=== PATIENT | female | born 1985 | race Two or more races ===

== ENCOUNTER 2024-05-26 09:54 | Emergency (ER) | payer MEDICAID, SELFPAY ==
[2024-05-26 10:38] VITALS: BP 127/83; PULSE 70; RESP 16; TEMP 36.6; O2SAT 99; BMI 34.9
--- NOTE | 2024-05-26 10:38 | XR_ITS ---
Examination: Complete OB ultrasound, less than 14 weeks, transabdominal Date and time of exam: May 26, 2024 1158 hours INDICATIONS: Vaginal bleeding and pelvic cramping beginning this morning, positive test May 02, 2024 Technique: Obstetrical ultrasound images less than 14 weeks performed via transabdominal imaging Findings: Uterus 10.6 x 6.7 x 7.9 cm Empty intrauterine gestational sac in the lower uterine segment No pole No cardiac activity Right ovary 3.8 x 3.1 cm arterial flow 24 mm cyst Left ovary 3.4 x 2.2 cm arterial flow IMPRESSION: Findings most consistent with spontaneous in progress, suggest continued short-term follow-up pelvic sonography
--- NOTE | 2024-05-26 10:38 | PD.EDRME ---
Rapid Medical Screening Exam RME Arrival date/time: 05/26/24 09:54 38-year-old female approximately 9 weeks G5, P4 presents emergency department complains of vaginal bleeding Chief Complaint: Vaginal Bleeding Time Seen by Provider: 05/26/24 10:32
[2024-05-26 11:33] LABS: Collection Type, Urine Clean Catch
[2024-05-26 11:34] LABS: Basophils % (Auto) 0 % (0-2.5); Eosinophils # (Auto) 0.1 Thou/mm3 (0.0-0.5); Eosinophils % (Auto) 2 % (0-10); Hematocrit 38.7 % (36.0-46.0); Hemoglobin 12.5 g/dL (12.0-16.0); Immature Granulocytes % (Auto) 0 % (0-0); Immature Granulocytes Auto 0.02 Thou/mm3 (0.00-0.00); Lymphocytes # (Auto) 1.9 Thou/mm3 (1.0-4.8); Lymphocytes % (Auto) 26 % (10-50); Mean Corpuscular HGB Conc 32.3 g/dl (31.0-37.0); Mean Corpuscular Hemoglobin 25.4 pg (25.0-35.0); Mean Corpuscular Volume 79 fL (80-100); Monocytes # (Auto) 0.4 Thou/mm3 (0.0-0.8); Monocytes % (Auto) 6 % (0-12); Neutrophils # (Auto) 4.9 Thou/mm3 (1.8-7.7); Neutrophils % (Auto) 66 % (37-80); Nucleated Red Blood Cell % 0 /100 WBC (0); Platelet Count 228 Thou/mm3 (140-440); RDW Standard Deviation 40.5 fL (36.4-46.3); Red Blood Count 4.92 Miln/mm3 (4.00-5.20); White Blood Count 7.4 Thou/mm3 (3.6-11.0)
[2024-05-26 11:52] LABS: Bacteria,Urine Rare; Bilirubin,Urine Negative (Negative); Blood,Urine 2+ (Negative); Clarity,Urine Clear (Clear/Hazy); Color,Urine Lt-Yellow (Lt Yel-Yel); Glucose, Urine Negative (Negative); Ketones,Urine Negative (Negative); Leukocyte Esterase,Urine Negative (Negative); Nitrite,Urine Negative (Negative); PH,Urine 6.5 (5.0-7.0); Protein,Urine Negative (Neg - Trace); RBC,Urine 1 /hpf (0-3); Specific Gravity,Urine 1.019 (1.001-1.035); Squamous Epithelial Cell,Urine 1 /hpf (0-5); Urobilinogen,Urine Negative mg/dL (0.0-1.0); WBC,Urine 2 /hpf (0-5)
[2024-05-26 12:14] LABS: Alanine Aminotransferase 9 U/L (10-49); Albumin, Serum 4.3 gm/dL (3.5-5.0); Albumin/Globulin Ratio 1.5 (1.2-2.2); Alkaline Phosphatase 62 U/L (46-116); Anion Gap 9 (7-16); Aspartate Amino Transferase 11 U/L (0-34); BUN/Creatinine Ratio 15 Ratio (12-20); Beta HCG,Quantitative 7825 mIU/mL (<5.0); Bilirubin,Total 0.6 mg/dL (0.3-1.2); Blood Urea Nitrogen 9 mg/dL (9-23); Calcium 9.3 mg/dL (8.3-10.6); Calcium (Corrected) 9.3 mg/dL (8.5-10.1); Carbon Dioxide 26.4 mMol/L (20.0-31.0); Chloride 105 mMol/L (98-107); Creatinine (Component) 0.6 mg/dL (0.6-1.3); Estimated Creatinine Clearance 163.8 mL/min (>60); Globulin 2.8 gm/dL (2.3-3.5); Glucose 98 mg/dL (74-106); Osmolality,Calculated 278 (275-295); Potassium 3.9 mMol/L (3.4-5.1); Sodium 140 mMol/L (136-145); Total Protein 7.1 gm/dL (5.7-8.2); eGFR > 60 See Note
--- NOTE | 2024-05-26 12:26 | EDNOTE_ITS ---
ED OB Contraction Preg RMI/HPI General Chief complaint: Vaginal Bleeding Stated complaint: 9weeks preg, vaginal bleeding Time Seen by Provider: 05/26/24 10:32 Arrival date/time: 05/26/24 09:54 38 year old female present to emergency room with c/o of vaginal bleeding today, pt is currently 9 week . LOCATION: suprapubic SEVERITY: Symptoms are described as being severe with limitations on activities of daily living QUALITY: Symptoms are described as being cramping CONTEXT: The patient is unable to identify any inciting events. DURATION/TIMING: The symptoms started approximately one day ago and have been waxing/waning but always present without ever completely resolving. ASSOCIATED SYMPTOMS: The patient is unable to identify any other associated symptoms. MODIFYING FACTORS: The patient is unable to identify any alleviating or aggravating symptoms. PERTINENT ROS: denies trauma, denies domestic violence, no dysuria or hematuria, no orthostatic symptoms, no nausea or vomiting, no fevers, no anorexia, no diarrhea or constipation REVIEW OF SYSTEMS: See History of Present Illness - with the exception of those mentioned in the history of present illness, all other systems reviewed and reported as negative GENERAL: In general the patient is awake, interactive, in an emergency departm ent rtoledo. HEAD/EYES/EARS/NOSE/THROAT: normo-cephalic, atraumatic, mucus membranes are moist, anicteric, palpebral conjunctiva is pink, trachea is midline. CARDIOVASCULAR: regular rate and regular rhythm, no murmurs, heart sounds are not distant, strong pulses in all four extremities that are equal and symmetric bilateral upper and lower extremities, normal capillary refill. CHEST/PULMONARY: normal chest rise and fall, good air movement, clear to auscultation bilaterally, normal inspiratory to expiratory ratios without evidence of respiratory distress. NECK: No midline/Paraspinal tenderness, no step off ROM/Strenght intact No Kernig and bruzinski sign. No trauma ABDOMEN: soft, not tender, no masses appreciated BACK: normal range of motion without pain. NEUROLOGICAL: cranio-facial features are symmetric, moves all four extremities equally without obvious limitations or weakness. EXTREMITY: no tenderness to palpation over the long bones or large joints of the bilateral upper and lower extremities, no joint swelling, no joint erythema, no signs of trauma, no unilateral leg swelling and no peripheral edema. SKIN: warm, dry, well-perfused, no jaundice, no rash, no telangiectasias or p etechia. PSYCH: calm, cooperative, no evidence of psychosis or agitation RME / HPI RME / HPI Narrative: 05/26/24 09:54 38-year-old female approximately 9 weeks G5, P4 presents emergency department complains of vaginal bleeding Related Data Previous Rx's ?Medication ?Instructions ?Recorded ibuprofen 600 mg tablet 600 mg PO TID PRN pain #30 t abs 10/26/22 ibuprofen 600 mg tablet 600 mg PO Q6H PRN pain #30 t abs 12/10/22 lidocaine 5 % topical patch 1 patch topical Q24H #6 ea 12/10/22 methocarbamol 750 mg tablet 750 mg PO Q6H PRN muscle p ain #20 12/10/22 tabs hydrocodone 5 mg-acetaminophen 325 1 tab PO Q6H PRN pa in #14 tabs 05/26/24 mg tablet Allergies Allergy/AdvReac Type Severity Reaction Status Date / Time No Known Allergies Allergy Verified 05/26/24 10:05 Course Course Course Narrative: This patient presents with vaginal bleeding in the first trimester. DDX includes ectopic, IUP, threatened/inevitable , along with completed . Patient is HDS and without a history of coagulopathy or infectious symptoms. Doubt alternate acute emergent pathology. Plan: bHCG, +/- basic labs, type and screen, TVUS, reassess Quality Measures none Orders Category Date Time Status US OB <= 14 weeks fetus Stat Exams 05/26/24 10:38 Completed ABO/RH Type Stat Lab 05/26/24 11:02 Completed Beta HCG,Quantitative Stat Lab 05/26/24 11:02 Completed CBC Stat Lab 05/26/24 11:02 Completed Comprehensive Metabolic Panel Stat Lab 05/26/24 11:02 Completed UA [Urinalysis] Stat Lab 05/26/24 11:25 Completed Urine Culture Stat Lab 05/26/24 11:25 Received HYDROcodone*/APAP 5/325 [[place] 5/325] Med 05/26/24 13:15 Discontinued 1 tab PO X1 ONE Ondansetron Odt [Zofran Odt] Med 05/26/24 13:15 Discontinued 4 mg PO X1 ONE Vital Signs Vital signs: Vital Signs Temperature 97.9 F 05/26/24 10:38 Pulse Rate 70 05/26/24 10:38 Respiratory Rate 16 05/26/24 10:38 Blood Pressure 127/83 05/26/24 10:38 Pulse Oximetry (%) 99 05/26/24 10:38 Oxygen Delivery Method Room Air 05/26/24 10:38 Vaginal Bleeding Patient data External records reviewed:: [facility] previous records Clinical information provided by:: patient Social determinants that could affect healthcare access:: none Patient has the following chronic illnesses:: none How is presenting disease/condition affected by chronic disease/condition?: no chronic disease Evaluation data The following diagnostics were reviewed and interpreted by me:: lab results and radiology exam(s) Lab and/or radiology exams considered but not ordered:: none Interpretation Summary: cbc/cmp no acute findings urine no infection + rbc hc US: Findings: Uterus 10.6 x 6.7 x 7.9 cm Empty intrauterine gestational sac in the lower uterine segment No pole No cardiac activity Right ovary 3.8 x 3.1 cm arterial flow 24 mm cyst Left ovary 3.4 x 2.2 cm arterial flow IMPRESSION: Findings most consistent with spontaneous in progress, suggest continued short-term follow-up pelvic sonography Medications / Prescriptions Medications or Prescriptions considered but not ordered:: none Medication administrations:: Medication Administration History Discontinued Medications Hydrocodone Bitart/Acetaminophen (Hydrocodone/Apap 5/325 Tablet) 1 tab PO X1 ONE Stop: 05/26/24 13:16 Last Admin: 05/26/24 13:25 Dose: 1 tab Documented By: ALIRIO Ondansetron HCl (Ondansetron Odt 4 Mg Tabrap) 4 mg PO X1 ONE; Protocol Stop: 05/26/24 13:16 Last Admin: 05/26/24 13:27 Dose: 4 mg Documented By: ALIRIO none Consultations Consultation(s) initiated? (list below): No Diagnosis Vaginal Bleeding Differential Diagnosis: missed , threatened , dysfunctional uterine bleeding, incomplete , ectopic without intrauterine and vaginal bleeding Most likely diagnosis given after review of the tests above:: miscarriage Admission Indicated Admission indicated?: not indicated Admission Request Was there a request for admission?: No Disposition Plan Disposition Plan: Discharge Discharge Attestation Discharge Attestation: The patient and all family members were given an opportunity to ask questions and understood the discharge instructions. Discharge instructions specifically effects, indications for sooner follow up or return to the emergency department, and the expected course of current diagnosis. Patient condition: Stable Discharge Plan Plan Patient Disposition: HOME (Self Care) Health Concerns: Return to ED or OB for recheck US or HCG in 3-5 days Return to ED if symptoms worsen Prescriptions/Referrals Prescriptions/Med Rec: New hydrocodone-acetaminophen 5-325 mg tablet 1 tab PO Q6H MDD 4 PRN (Reason: pain) Qty: 14 0RF No Action ibuprofen 600 mg tablet 600 mg PO TID PRN (Reason: pain) Qty: 30 0RF ibuprofen 600 mg tablet 600 mg PO Q6H PRN (Reason: pain) Qty: 30 0RF methocarbamol 750 mg tablet 750 mg PO Q6H PRN (Reason: muscle pain) Qty: 20 0RF lidocaine 5 % adhesive patch,medicated 1 patch topical Q24H Qty: 6 0RF Rx Instructions: leave on most painful area for up to 12 hrs Referrals: Ruba Whitney PA-C [Primary Care Provider] - In 1 week Problem List Clinical Impression: Miscarriage, threatened, early Patient/Caregiver Discharge Instructions Education Materials: ED Possible Miscarriage ... Print Language: Irish Stand Alone Forms: Sade Award Info., Patient Portal Info Letter
[2024-05-26 13:11] VITALS: BP 123/85; PULSE 74; RESP 18; TEMP 36.5; O2SAT 97
[2024-05-26] MEDS: HYDROcodone/APAP 5/325 TABLET 1 TAB PO (13:25)
[2024-05-26] MEDS: ONDANSETRON ODT 4 MG TABRAP PO (13:27)
== END 2024-05-26 13:37 | disposition home or self-care (01) ==
PROVIDERS: Nurse Practitioner Primary Care; Emergency Provider Emergency Medicine; PCP Physician Assistant
DX: O20.0 Threatened abortion (principal); Z3A.09 9 weeks gestation of pregnancy
CPT/HCPCS: 36415; 76801; 80053; 81001; 84702; 85025; 86900; 86901; 87077; 87086; 87186; 99284; Q0162; A9270

== ENCOUNTER 2024-05-28 13:33 | Emergency (ER) | payer MEDICAID, SELFPAY ==
[2024-05-28 13:34] VITALS: BMI 34.4
[2024-05-28 13:43] VITALS: BP 130/94; PULSE 100; RESP 18; TEMP 36.9; O2SAT 99
--- NOTE | 2024-05-28 13:46 | XR_ITS ---
Examination: OB Transvaginal ultrasound of the pelvis, complete Technique: Transvaginal sonographic images pelvis performed using babcock scale imaging Exam date and time: May 28, 2024 1416 hours INDICATIONS: Pelvic pain and cramping beginning 3 days ago FINDINGS: Uterus 12.5 x 7.2 x 9.5 cm Intrauterine gestational sac in the lower uterine segment, pole 0.9 cm corresponds to 6 week 6 day gestational age No cardiac motion Right ovary 3.1 cm arterial flow to 0.0 cm cyst Left ovary obscured by bowel gas IMPRESSION: Spontaneous in progress, recommend short-term follow-up transvaginal pelvic sonography.
--- NOTE | 2024-05-28 13:50 | PD.EDVAGBL ---
ED OB Contraction Preg RMI/HPI General Chief complaint: Vaginal Bleeding Stated complaint: VAGINAL BLEEDING SEEN HERE ON SUNDAY Time Seen by Provider: 05/28/24 13:50 Source: patient Arrival date/time: 05/28/24 13:33 38-year-old female with no known medical history presents to the emergency room with a chief complaint of vaginal bleeding, and bilateral pelvic pain x 2 days. Patient states she was seen here on Sunday and told she was having a spontaneous . Patient states her bleeding is more than a period. Mode of arrival: ambulatory Limitations: no limitations Related Data Previous Rx's ?Medication ?Instructions ?Recorded ibuprofen 600 mg tablet 600 mg PO TID PRN pain #30 tabs 10/26/22 ibuprofen 600 mg tablet 600 mg PO Q6H PRN pain #30 tabs 12/10/22 lidocaine 5 % topical patch 1 patch topical Q24H #6 ea 12/10/22 methocarbamol 750 mg tablet 750 mg PO Q6H PRN muscle pain #20 12/10/22 tabs hydrocodone 5 mg-acetaminophen 325 1 tab PO Q6H PRN pain #14 tabs 05/26/24 mg tablet Allergies Allergy/AdvReac Type Severity Reaction Status Date / Time No Known Allergies Allergy Verified 05/28/24 13:34 Review of Systems Review of Systems Systems Reviewed: All systems reviewed, normal except as documented Constitutional Constitutional: Reports system reviewed and no additional complaints, except as documented, Denies fatigue, Denies fever(s), Denies headache(s) and Denies weakness Eyes Eyes: Reports system reviewed and no additional complaints, except as documented, Denies blurry vision and Denies change in vision ENT Ears, Nose, Mouth, and Throat: Reports system reviewed and no additional complaints, except as documented, Denies otalgia, Denies headache(s), Denies nasal congestion, Denies throat swelling and Denies vertigo Cardiovascular Cardiovascular: Reports system reviewed and no additional complaints, except as documented, Denies chest pain, Denies dyspnea and Denies dyspnea on exertion Respiratory Respiratory: Reports system reviewed and no additional complaints, except as documented, Denies chest congestion, Denies cough, Denies dyspnea, Denies dyspnea on exertion and Denies wheezing Gastrointestinal Gastrointestinal: Reports system reviewed and no additional complaints, except as documented, Denies abdominal pain, Denies cramping, Denies nausea and Denies vomiting Genitourinary Genitourinary: Reports system reviewed and no additional complaints, except as documented, Reports abnormal vaginal bleeding and Reports pelvic pain Musculoskeletal Musculoskeletal: Reports system reviewed and no additional complaints, except as documented and Denies back pain Integumentary/Breasts Skin/Breast: Reports system reviewed and no additional complaints, except as documented and Denies wounds Neurologic Neurologic: Reports system reviewed and no additional complaints, except as documented, Denies confusion, Denies headache(s), Denies lack of coordination, Denies vertigo and Denies weakness Psychiatric Psychiatric: Reports system reviewed and no additional complaints, except as documented, Denies anxiety, Denies confusion, Denies depression, Denies paranoia, Denies suicidal ideation and Denies tactile hallucinations Endocrine Endocrine: Reports system reviewed and no additional complaints, except as documented and Denies fatigue Hematologic/Lymphatic Hematologic/Lymphatic: Reports system reviewed and no additional complaints, except as documented and Denies lymphadenopathy Allergic/Immunologic Allergic/Immunologic: Reports system reviewed and no additional complaints, except as documented, Denies throat swelling, Denies urticaria and Denies wheezing Past Medical History Past Medical History CARDIAC: Negative Cardiac Disorders or Congestive Heart Failure RESPIRATORY: Negative Chronic Obstructive Pulmonary Disease (COPD) or Asthma GENITOURINARY: Negative Renal Disease ENDOCRINE: Negative Diabetes Mellitus Type 1 or Diabetes Mellitus Type 2 HEMATOLOGIC: Negative Sickle Cell Disease Surgical History SURGICAL: Positive Abdominal Surgery and Section (x4) Social History SMOKING STATUS: Never smoker SUBSTANCE USE: does not use ED Exam General Limitations: Present no limitations General appearance: Present alert and in no apparent distress Head Head exam: Present atraumatic Eye Eye exam: Present normal appearance, PERRL and EOMI ENT ENT exam: Present normal exam, normal oropharynx and mucous membranes moist Neck Neck exam: Present normal inspection, full ROM and trachea midline Chest Chest inspection: Present normal inspection and symmetric chest wall rise Respiratory Respiratory exam: Present normal lung sounds bilaterally Cardiovascular Cardiovascular exam: Present regular rate, normal rhythm and normal heart sounds Abdominal Exam Abdominal exam: Present soft, tenderness and normal bowel sounds; Absent distention, guarding, rebound or rigidity Abdominal tenderness: Present RLQ, LLQ, suprapubic and mild Extremities Exam Extremities exam: Present normal inspection and full ROM Back Exam Back exam: Present normal inspection and full ROM Neurological Exam Neurological exam: Present alert, oriented X3 and CN II-XII intact Psychiatric Psychiatric exam: Present normal affect and normal mood Skin Skin exam: Present warm, dry, intact and normal color Course Quality Measures none Orders Category Date Time Status US OB transvaginal Stat Exams 05/28/24 13:46 Completed ABO/RH Type Stat Lab 05/28/24 13:54 Completed Beta HCG,Quantitative Stat Lab 05/28/24 13:54 Completed CBC Stat Lab 05/28/24 13:54 Completed CMP [Comprehensive Metabolic Panel] Stat Lab 05/28/24 13:54 Completed UA [Urinalysis] Stat Lab 05/28/24 14:42 Completed Acetaminophen Tab [Tylenol ES Tab] Med 05/28/24 13:49 Discontinued 1,000 mg PO X1 ONE Vital Signs Vital signs: Vital Signs Temperature 98.5 F 05/28/24 13:43 Pulse Rate 100 05/28/24 13:43 Respiratory Rate 18 05/28/24 13:43 Blood Pressure 130/94 H 05/28/24 13:43 Pulse Oximetry (%) 99 05/28/24 13:43 Oxygen Delivery Method Room Air 05/28/24 13:43 O2 saturation 99% within normal limits Vaginal Bleeding MDM Narrative MDM Narrative: 38-year-old female with no known medical history presents to the emergency room with a chief complaint of vaginal bleeding, and bilateral pelvic pain x 2 days. Patient states she was seen here on Sunday and told she was having a spontaneous . Patient states her bleeding is more than a period. Patient is hemodynamically stable and in no apparent distress. Patient states she is changing less than 1 pad an hour. CBC CMP are within normal limits hemoglobin and hematocrit are within normal limits. Ultrasound transvaginal was completed and shows that there is a spontaneous in progress. Our radiologist recommends short-term follow-up. hCG levels dropped from 7855 down to 2388. Patient was educated to follow-up with her LINUX DEVELOPER in the next 48 to 72 hours. Patient was given strict return precautions if her vaginal bleeding begins to get worse. Patient was educated that our radiologist recommends close short-term follow-up to make sure that there is no retained products. Patient was educated to return to the emergency room for any evidence of worsening signs or symptoms Patient data External records reviewed:: [facility] previous records Clinical information provided by:: patient Social determinants that could affect healthcare access:: none Patient has the following chronic illnesses:: No chronic illness How is presenting disease/condition affected by chronic disease/condition?: no chronic disease Evaluation data The following diagnostics were reviewed and interpreted by me:: lab results and radiology exam(s) Lab and/or radiology exams considered but not ordered:: Labs and radiology exams considered and ordered Interpretation Summary: OB ultrasound-FINDINGS: Uterus 12.5 x 7.2 x 9.5 cm Intrauterine gestational sac in the lower uterine segment, pole 0.9 cm corresponds to 6 week 6 day gestational age No cardiac motion Right ovary 3.1 cm arterial flow to 0.0 cm cyst Left ovary obscured by bowel gas IMPRESSION: Spontaneous in progress, recommend short-term follow-up transvaginal pelvic sonography. Medications / Prescriptions Medications or Prescriptions considered but not ordered:: Medication given Medication administrations:: Medication Administration History Discontinued Medications Acetaminophen (Acetaminophen 500 Mg Tablet) 1,000 mg PO X1 ONE Stop: 05/28/24 13:50 Last Admin: 05/28/24 13:59 Dose: 1,000 mg Documented By: Medication given Consultations Consultation(s) initiated? (list below): No Diagnosis Vaginal Bleeding Differential Diagnosis: missed , threatened , dysfunctional uterine bleeding, incomplete , ectopic without intrauterine , vaginal bleeding and other (Spontaneous ) Most likely diagnosis given after review of the tests above:: Spontaneous Admission Indicated Admission indicated?: not indicated Admission Request Was there a request for admission?: No Disposition Plan Disposition Plan: Discharge Discharge Attestation Discharge Attestation: The patient and all family members were given an opportunity to ask questions and understood the discharge instructions. Discharge instructions specifically effects, indications for sooner follow up or return to the emergency department, and the expected course of current diagnosis. Patient condition: Stable Discharge Plan Plan Patient Disposition: HOME (Self Care) Disposition Comment: Stable Prescriptions/Referrals Prescriptions/Med Rec: No Action ibuprofen 600 mg tablet 600 mg PO TID PRN (Reason: pain) Qty: 30 0RF hydrocodone-acetaminophen 5-325 mg tablet 1 tab PO Q6H MDD 4 PRN (Reason: pain) Qty: 14 0RF ibuprofen 600 mg tablet 600 mg PO Q6H PRN (Reason: pain) Qty: 30 0RF methocarbamol 750 mg tablet 750 mg PO Q6H PRN (Reason: muscle pain) Qty: 20 0RF lidocaine 5 % adhesive patch,medicated 1 patch topical Q24H Qty: 6 0RF Rx Instructions: leave on most painful area for up to 12 hrs Referrals: No Primary/Family,Physician [Primary Care Provider] - In 1 week Problem List Clinical Impression: Spontaneous Patient/Caregiver Discharge Instructions Education Materials: Understanding Miscarriage: Emotions, Understanding Miscarriage ..., Understanding Miscarriage ... Additional Instructions: Please follow-up with your LINUX DEVELOPER in the next 24 to 48 hours. If your bleeding gets worse please return to the emergency room immediately Our radiologist recommends repeat blood work and imaging in 48 to 72 hours to make sure that there is no retained products. Print Language: German Stand Alone Forms: Sade Award Info., Work/School Release, Patient Portal Info Letter PA/FIXING CARPENTER Supervising Physician PA/FIXING CARPENTER Supervising Physician: Dr Ho
[2024-05-28] MEDS: ACETAMINOPHEN 500 MG TABLET 1000 MG PO (13:59)
[2024-05-28 14:03] LABS: Basophils % (Auto) 0 % (0-2.5); Eosinophils # (Auto) 0.1 Thou/mm3 (0.0-0.5); Eosinophils % (Auto) 1 % (0-10); Hematocrit 39.6 % (36.0-46.0); Hemoglobin 12.8 g/dL (12.0-16.0); Immature Granulocytes % (Auto) 0 % (0-0); Immature Granulocytes Auto 0.03 Thou/mm3 (0.00-0.00); Lymphocytes # (Auto) 1.8 Thou/mm3 (1.0-4.8); Lymphocytes % (Auto) 18 % (10-50); Mean Corpuscular HGB Conc 32.3 g/dl (31.0-37.0); Mean Corpuscular Hemoglobin 25.5 pg (25.0-35.0); Mean Corpuscular Volume 79 fL (80-100); Monocytes # (Auto) 0.6 Thou/mm3 (0.0-0.8); Monocytes % (Auto) 6 % (0-12); Neutrophils # (Auto) 7.7 Thou/mm3 (1.8-7.7); Neutrophils % (Auto) 75 % (37-80); Nucleated Red Blood Cell % 0 /100 WBC (0); Platelet Count 263 Thou/mm3 (140-440); RDW Standard Deviation 40.2 fL (36.4-46.3); Red Blood Count 5.02 Miln/mm3 (4.00-5.20); White Blood Count 10.3 Thou/mm3 (3.6-11.0)
[2024-05-28 14:26] LABS: Alanine Aminotransferase 8 U/L (10-49); Albumin, Serum 4.5 gm/dL (3.5-5.0); Albumin/Globulin Ratio 1.5 (1.2-2.2); Alkaline Phosphatase 72 U/L (46-116); Anion Gap 7 (7-16); Aspartate Amino Transferase 14 U/L (0-34); BUN/Creatinine Ratio 14 Ratio (12-20); Bilirubin,Total 0.5 mg/dL (0.3-1.2); Blood Urea Nitrogen 10 mg/dL (9-23); Calcium 9.6 mg/dL (8.3-10.6); Calcium (Corrected) 9.6 mg/dL (8.5-10.1); Carbon Dioxide 25.6 mMol/L (20.0-31.0); Chloride 110 mMol/L (98-107); Creatinine (Component) 0.7 mg/dL (0.6-1.3); Estimated Creatinine Clearance 139.5 mL/min (>60); Glucose 110 mg/dL (74-106); Osmolality,Calculated 284 (275-295); Potassium 3.7 mMol/L (3.4-5.1); Sodium 143 mMol/L (136-145); Total Protein 7.5 gm/dL (5.7-8.2); eGFR > 60 See Note
[2024-05-28 15:04] LABS: Beta HCG,Quantitative 2388 mIU/mL (<5.0)
[2024-05-28 15:12] LABS: Collection Type, Urine Clean Catch
[2024-05-28 15:33] LABS: Bilirubin,Urine Negative (Negative); Blood,Urine 3+ (Negative); Clarity,Urine Turbid (Clear/Hazy); Color,Urine Yellow (Lt Yel-Yel); Glucose, Urine Negative (Negative); Hyaline Casts,Urine < 1 /hpf (0-1); Ketones,Urine Negative (Negative); Leukocyte Esterase,Urine Positive (Negative); Nitrite,Urine Negative (Negative); PH,Urine 5.5 (5.0-7.0); Protein,Urine 1+ (Neg - Trace); RBC,Urine 221 /hpf (0-3); Specific Gravity,Urine 1.028 (1.001-1.035); Squamous Epithelial Cell,Urine 4 /hpf (0-5); Urobilinogen,Urine Negative mg/dL (0.0-1.0); WBC,Urine 2 /hpf (0-5)
== END 2024-05-28 17:04 | disposition home or self-care (01) ==
PROVIDERS: Nurse Practitioner Family; Emergency Provider Emergency Medicine
DX: O03.9 Complete or unspecified spontaneous abortion without complication (principal)
CPT/HCPCS: 36415; 76817; 80053; 81001; 84702; 85025; 86900; 86901; 99284; A9270

== ENCOUNTER → 2025-02-06 | Outpatient (CLI) | payer MEDICAID, SELFPAY ==
--- NOTE | 2025-02-06 14:30 | XR_ITS ---
Examination: Knee, right, 3 views Technique: Knee AP, lateral, oblique 3 views Date and time of exam: February 06, 2025, 1448 hours INDICATION: Right knee pain beginning 1 year ago. FINDINGS: Advanced tricompartment osteoarthritis Moderate knee effusion No fracture IMPRESSION: Advanced tricompartment osteoarthritis
== END | disposition home or self-care (01) ==
LOC: CDIM 14:18
PROVIDERS: PCP Physician Assistant; Referring Provider Physician Assistant; Visit Provider Physician Assistant
DX: M17.11 Unilateral primary osteoarthritis, right knee (principal)
CPT/HCPCS: 73562

== ENCOUNTER 2025-04-19 20:54 | Emergency (ER) | payer MEDICAID, SELFPAY ==
[2025-04-19 20:56] VITALS: BMI 30.4
[2025-04-19 21:05] VITALS: BP 135/91; PULSE 111; RESP 17; TEMP 37; O2SAT 97
--- NOTE | 2025-04-19 21:21 | XR_ITS ---
Examination: CT abdomen with intravenous contrast CT pelvis with intravenous contrast 2-D coronal reconstructions 2-D sagittal reconstructions Date and time of exam: April 19, 2025, 11:00 p.m., comparison April 17, 2021 INDICATIONS: Left lower abdominal pain beginning this morning. CTDI: vol (mGy) 12.8 DLP: (mGycm) 801 Technique: Multiple axial sections of the abdomen and pelvis have been obtained. 64 slice high-resolution scanner used. 3 mm axial sections have been obtained, post intravenous injection 60 cc [id number] 2-D sagittal, coronal reconstructions obtained. Low dose protocols were performed. One or more of the following dose reduction techniques were used; automated exposure control, adjustment of the mA and/or KV according to patient size, use of iterative reconstruction technique. Findings: No focal liver or splenic lesion Absent gallbladder No pancreatic or adrenal mass No renal or ureteral calculi, no hydronephrosis Aorta normal size Normal appendix Acute diverticulitis mid to distal descending colon No peridiverticular abscess Contracted urinary bladder Intact osseous structures IMPRESSION: Acute diverticulitis mid to distal descending colon, no peridiverticular abscess
--- NOTE | 2025-04-19 21:22 | EDNOTE_ITS ---
ED Abdominal Pain RME/HPI General Chief Complaint: Abdominal Pain Stated complaint: LEFT LOWER ABD PAIN, LIGHTHEADED Time seen by provider: 04/19/25 21:08 Arrival date/time: 04/19/25 20:54 39-year-old female patient came in for evaluation regarding left lower quadrant pain. Onset of symptoms since early this morning as sudden onset of left lower quadrant pain, described as sharp pain, severity moderate associated with lightheadedness and nausea. No fever noted no diarrhea no constipation hematuria dysuria or frequency. Patient told me that she is not . Related Data Previous Rx's ?Medication ?Instructions ?Recorded ibuprofen 600 mg tablet 600 mg PO TID PRN pain #30 t abs 10/26/22 ibuprofen 600 mg tablet 600 mg PO Q6H PRN pain #30 t abs 12/10/22 lidocaine 5 % topical patch 1 patch topical Q24H #6 ea 12/10/22 methocarbamol 750 mg tablet 750 mg PO Q6H PRN muscle p ain #20 12/10/22 tabs hydrocodone 5 mg-acetaminophen 325 1 tab PO Q6H PRN pa in #14 tabs 05/26/ mg tablet acetaminophen 500 mg tablet 1,000 mg (2 x 500 mg) PO T ID PRN 04/20/25 (Tylenol Extra Strength) pain #30 tabs ciprofloxacin HCl 500 mg tablet 500 mg PO BID #14 tabs 04/20/25 (Cipro) metronidazole 500 mg tablet 500 mg PO BID 7 days #14 t abs 04/20/25 sennosides 8.6 mg-docusate sodium 1 tab-cap PO QDAY CT N constipation 04/20/25 50 mg tablet (Colace 2-In-1) #14 tabs Allergies Allergy/AdvReac Type Severity Reaction Status Date / Time No Known Allergies Allergy Verified 04/19/25 20:55 Review of Systems Review of Systems Narrative Review of Systems: Review of system reviewed and within normal limits except mentioned in HPI ED Exam Narrative Physical exam: VITAL SIGNS: Reviewed. GENERAL APPEARANCE: Alert and interactive, follows commands, no acute distress, HEAD AND FACE: Non-traumatic. ENT: PERRL, pink conjunctivitis, eyelid no trauma, Mucous membrane moist. NECK: Supple, nontender, no nuchal rigidity. CHEST: No tenderness, no crepitus, no paradoxical movement, no retractions. LUNGS: Clear, well ventilated, symmetric, no rales, no wheezing, no ronchi, no stridor, good breath sounds bilaterally. HEART: Regular rate, regular rhythm, no murmur, no gallops. ABDOMEN: Soft, positive bowel sounds, nondistended, no guarding, left lower quadrant tenderness, no rebound, no masses, RECTAL: Deferred. GENITAL: Deferred. NEUROLOGICAL: Gross motor function intact sensory function intact, Appropriate for age. MUSCULOSKELETAL: low back nontender, full range of motion. EXTREMITIES: Nontender, full range of motion. SKIN: Color pink, dry, no rash, no lacerations, no abrasions, no contusions. LYMPHATICS: Deferred. Course Quality Measures none Orders Category Date Time Status CT Screening NOW Care 04/19/25 21:[address] abdomen pelvis w con Stat Exams 04/19/25 21:21 Completed CBC Stat Lab 04/19/25 21:29 Completed Comprehensive Metabolic Panel Stat Lab 04/19/25 21:29 Completed HCG Qualitative,Urine Stat Lab 04/19/25 21:31 Completed Lipase Stat Lab 04/19/25 21:29 Completed Prothrombin Time with INR Stat Lab 04/19/25 21:29 Completed UA, C/S IF [Urinalysis, C/S if Indicated] Stat Lab 04/19/25 21:31 Completed Ciprofloxacin HCl [Ciprofloxacin] Med 04/20/25 00:17 Discontinued 500 mg PO X1 ONE Ketorolac Inj [Toradol Inj] Med 04/19/25 21:22 Discontinued 30 mg IVP X1 ONE Ondansetron Inj [Zofran Inj] Med 04/19/25 21:22 Discontinued 4 mg IVP X1 ONE metroNIDAZOLE [Flagyl] Med 04/20/25 00:17 Discontinued 500 mg PO X1 ONE Vital Signs Vital signs: Vital Signs Temperature 98.6 F 04/19/25 21:05 Pulse Rate 111 H 04/19/25 21:05 Respiratory Rate 17 04/19/25 21:05 Blood Pressure 135/91 H 04/19/25 21:05 Pulse Oximetry (%) 97 04/19/25 21:05 Oxygen Delivery Method Room Air 04/19/25 21:05 Abdominal Pain MDM MDM Narrative MDM Narrative:: 39-year-old female patient came in for evaluation regarding left lower quadrant pain. Onset of symptoms since early this morning as sudden onset of left lower quadrant pain, described as sharp pain, severity moderate associated with lightheadedness and nausea. No fever noted no diarrhea no constipation hematuria dysuria or frequency. Patient told me that she is not . Patient's laboratory workup all came back unremarkable except for mild leukocytosis 12.7. CT scan of the abdomen showed diverticulitis with no sign of perforation or abscess. Results discussed with the patient. Patient was given Cipro Toradol Flagyl and Zofran. Patient stable for discharged home Patient data External records reviewed:: None Clinical information provided by:: patient and family Social determinants that could affect healthcare access:: none Patient has the following chronic illnesses:: None How is presenting disease/condition affected by chronic disease/condition?: no chronic disease Evaluation data The following diagnostics were reviewed and interpreted by me:: lab results and radiology exam(s) Lab and/or radiology exams considered but not ordered:: None Interpretation Summary: See above Medications / Prescriptions Medications or Prescriptions considered but not ordered:: None Medication administrations:: Medication Administration History Discontinued Medications Ciprofloxacin (Ciprofloxacin Hcl 250 Mg Tablet) 500 mg PO X1 ONE Stop: 04/20/25 00:18 Ketorolac Tromethamine (Ketorolac Inj 30 Mg/Ml Vial) 30 mg IVP X1 ONE Stop: 04/19/25 21:23 Last Admin: 04/19/25 22:07 Dose: 30 mg Documented By: LUIS Metronidazole (Metronidazole 250 Mg Tablet) 500 mg PO X1 ONE Stop: 04/20/25 00:18 Ondansetron HCl (Ondansetron Inj 2 Mg/Ml Inj 2 Ml) 4 mg IVP X1 ONE; Protocol Stop: 04/19/25 21:23 Last Admin: 04/19/25 22:07 Dose: 4 mg Documented By: LUIS See above Consultations Consultation(s) initiated? (list below): No Diagnosis Differential diagnosis abdominal pain: abdominal pain, diverticulitis and small bowel obstruction Most likely diagnosis given after review of the tests above:: Diverticulitis Admission Indicated Admission indicated?: not indicated Admission Request Was there a request for admission?: No Disposition Plan Disposition Plan: Discharge Discharge Attestation Discharge Attestation: The patient and all family members were given an opportunity to ask questions and understood the discharge instructions. Discharge instructions specifically effects, indications for sooner follow up or return to the emergency department, and the expected course of current diagnosis. Patient condition: Stable Discharge Plan Plan Patient Disposition: HOME (Self Care) Discharge Disposition comment: Stable Prescriptions/Referrals Prescriptions/Med Rec: New ciprofloxacin HCl [Cipro] 500 mg tablet 500 mg PO BID Qty: 14 0RF sennosides-docusate sodium [Colace 2-In-1] 8.6-50 mg tablet 1 tab-cap PO QDAY PRN (Reason: constipation) Qty: 14 0RF metronidazole 500 mg tablet 500 mg PO BID 7 Days Qty: 14 0RF acetaminophen [Tylenol Extra Strength] 500 mg tablet 1,000 mg PO TID PRN (Reason: pain) Qty: 30 0RF No Action ibuprofen 600 mg tablet 600 mg PO TID PRN (Reason: pain) Qty: 30 0RF hydrocodone-acetaminophen 5-325 mg tablet 1 tab PO Q6H MDD 4 PRN (Reason: pain) Qty: 14 0RF ibuprofen 600 mg tablet 600 mg PO Q6H PRN (Reason: pain) Qty: 30 0RF methocarbamol 750 mg tablet 750 mg PO Q6H PRN (Reason: muscle pain) Qty: 20 0RF lidocaine 5 % adhesive patch,medicated 1 patch topical Q24H Qty: 6 0RF Rx Instructions: leave on most painful area for up to 12 hrs Referrals: Ruba Whitney PA-C [Primary Care Provider] - In 1 week Problem List Clinical Impression: Diverticulitis Patient/Caregiver Discharge Instructions Discharge Activity: activity as tolerated Education Materials: ED Diverticulitis Additional Instructions: Thank you for the opportunity for serving you today. You are stable for discharged . You are advised to: Follow-up with your PCP in 1 to 2 days Return to ED for worsening of symptoms Increase oral fluids Take medication as prescribed Liquid diet for 2 days advance as tolerated Print Language: German Stand Alone Forms: Sade Award Info., Patient Portal Info Letter PA/LUZ Supervising Physician PA/LUZ Supervising Physician: MD Jon
[2025-04-19 21:43] LABS: Collection Type, Urine Clean Catch
[2025-04-19 21:47] LABS: Basophils # (Auto) 0.1 Thou/mm3 (0.0-0.2); Basophils % (Auto) 0 % (0-2.5); Eosinophils # (Auto) 0.2 Thou/mm3 (0.0-0.5); Eosinophils % (Auto) 2 % (0-10); Hematocrit 38.3 % (36.0-46.0); Hemoglobin 12.0 g/dL (12.0-16.0); Immature Granulocytes Auto 0.06 Thou/mm3 (0.00-0.00); Lymphocytes # (Auto) 2.2 Thou/mm3 (1.0-4.8); Lymphocytes % (Auto) 18 % (10-50); Mean Corpuscular HGB Conc 31.3 g/dl (31.0-37.0); Mean Corpuscular Hemoglobin 25.6 pg (25.0-35.0); Mean Corpuscular Volume 82 fL (80-100); Monocytes # (Auto) 0.8 Thou/mm3 (0.0-0.8); Monocytes % (Auto) 7 % (0-12); Neutrophils # (Auto) 9.3 Thou/mm3 (1.8-7.7); Neutrophils % (Auto) 73 % (37-80); Nucleated Red Blood Cell # 0.00 Thou/mm3 (0.00-0.00); Nucleated Red Blood Cell % 0 /100 WBC (0); Platelet Count 213 Thou/mm3 (140-440); RDW Standard Deviation 43.1 fL (36.4-46.3); Red Blood Count 4.68 Miln/mm3 (4.00-5.20); White Blood Count 12.7 Thou/mm3 (3.6-11.0)
[2025-04-19 21:56] LABS: HCG Qualitative,Urine Negative
[2025-04-19 21:57] LABS: Bilirubin,Urine Negative (Negative); Blood,Urine Negative (Negative); Clarity,Urine Clear (Clear/Hazy); Color,Urine Lt-Yellow (Lt Yel-Yel); Culture Indicated,Urine Not Indicated; Glucose, Urine Negative (Negative); Ketones,Urine Negative (Negative); Leukocyte Esterase,Urine Negative (Negative); Nitrite,Urine Negative (Negative); PH,Urine 8.5 (5.0-7.0); Protein,Urine Trace (Neg - Trace); RBC,Urine < 1 /hpf (0-3); Specific Gravity,Urine 1.023 (1.001-1.035); Squamous Epithelial Cell,Urine 3 /hpf (0-5); Urobilinogen,Urine Negative mg/dL (0.0-1.0); WBC,Urine < 1 /hpf (0-5)
[2025-04-19] MEDS: ONDANSETRON INJ 2 MG/ML INJ 2 ML 4 MG IVP (22:07)
[2025-04-19] MEDS: KETOROLAC INJ 30 MG/ML VIAL IVP (22:07)
[2025-04-19 22:08] LABS: Alanine Aminotransferase 15 U/L (10-49); Albumin, Serum 4.3 gm/dL (3.5-5.0); Albumin/Globulin Ratio 1.5 (1.2-2.2); Alkaline Phosphatase 65 U/L (46-116); Anion Gap 10 (7-16); Aspartate Amino Transferase 18 U/L (0-34); BUN/Creatinine Ratio 9 Ratio (12-20); Bilirubin,Total 0.4 mg/dL (0.3-1.2); Blood Urea Nitrogen 8 mg/dL (9-23); Calcium 8.9 mg/dL (8.3-10.6); Calcium (Corrected) 8.9 mg/dL (8.5-10.1); Carbon Dioxide 29.2 mMol/L (20.0-31.0); Chloride 106 mMol/L (98-107); Creatinine (Component) 0.9 mg/dL (0.6-1.3); Estimated Creatinine Clearance 100.8 mL/min (>60); Globulin 2.9 gm/dL (2.3-3.5); Glucose 152 mg/dL (74-106); Lipase 34 U/L (12-53); Osmolality,Calculated 290 (275-295); Potassium 3.8 mMol/L (3.4-5.1); Sodium 145 mMol/L (136-145); Total Protein 7.2 gm/dL (5.7-8.2); eGFR > 60 See Note
[2025-04-19 22:24] VITALS: BP 123/85; PULSE 85; RESP 16; TEMP 37.3; O2SAT 95
[2025-04-19 22:25] LABS: INR 0.9 (0.9-1.3); Prothrombin Time 9.9 Seconds (9.0-12.2)
[2025-04-20] MEDS: CIPROFLOXACIN HCL 250 MG TABLET 500 MG PO (00:25)
[2025-04-20 00:30] VITALS: PULSE 66; RESP 13; O2SAT 95
== END 2025-04-20 00:31 | disposition home or self-care (01) ==
PROVIDERS: Emergency Provider Nurse Practitioner Family; PCP Physician Assistant
DX: K57.32 Diverticulitis of large intestine without perforation or abscess without bleeding (principal)
CPT/HCPCS: 36415; 74177; 80053; 81001; 81025; 83690; 85025; 85610; 96374; 96375; 99283; A4649; J1885; J2405; Q9967; A9270